=== PATIENT | female | born 1930 | race Caucasian/White ===

== ENCOUNTER 2018-03-02 11:29 | Inpatient (IN) ==
[2018-03-02] MEDS ORDERED: 0.9 % SODIUM CHLORIDE 1,000 ML IV ONE ×2 (11:47→13:20)
--- NOTE | 2018-03-02 12:39 | Emergency Department Note ---
GI Bleed HPI - General Chief complaint: Rectal Bleed Stated complaint: darks stools, dark vomit Time Seen by Provider: 03/02/18 12:33 Source: patient, family Mode of arrival: wheelchair Limitations: no limitations - History of Present Illness HPI Narrative: Patient stating she has had black stools for the past 3 days had one episode of hematemesis yesterday and she is on Plavix for CVA in the past also takes a full dose aspirin. She denies any abdominal pain she is having some slight nausea she states she has been feeling lightheaded but it has been present for the last 3 months she has had a colonoscopy but is been greater than 10 years Temperature 97.0 pulse is 78 respirations are 20 blood pressure 119/71 pulse ox is 95% the Accu-Chek is 175 - Related Data Home Medications Medication Instructions Recorded Confirmed [facility] Contour Test 10/30/14 02/18/18 acetaminophen 325 mg tablet See Dose Instructions PO .COMPLEX 10/30/14 02/18/18 PRN tab aspirin 325 mg tablet 325 mg PO QDAY tab 10/30/14 02/18/18 calcium carbonate 500 mg (1,250 1 tab PO .QOD tab 10/30/14 02/18/18 mg)-vitamin D3 400 unit tablet multivitamin capsule 1 tab-cap PO QDAY cap 10/30/14 02/18/18 stool softener PO 10/30/14 02/18/18 Previous Rx's Medication Instructions Recorded tramadol 37.5 mg-acetaminophen 325 1 tab PO TID PRN #30 tab 01/09/16 mg tablet cholecalciferol (vitamin D3) 1,000 1,000 unit PO QDAY #1 cap 01/15/16 unit capsule amlodipine 10 mg tablet 10 mg PO BID #180 tab 02/17/17 lisinopril 20 mg tablet 20 mg PO BID #180 tab 09/17/17 glipizide ER 5 mg tablet, extended 5 mg PO .COMPLEX #180 tab 11/03/17 release 24 hr ropinirole 1 mg tablet 1 mg PO QHS #225 tab 11/03/17 furosemide 20 mg tablet 20 mg PO QDAY #30 tab 12/09/17 atenolol 50 mg tablet 50 mg PO QDAY 90 Days #90 tab 12/24/17 clopidogrel 75 mg tablet 75 mg PO QDAY 90 Days #90 tab 12/24/17 cyclobenzaprine 5 mg tablet 5 mg PO TID PRN #90 tab 12/24/17 simvastatin 40 mg tablet 20 mg PO QDAY #45 tab 12/24/17 triamterene 37.5 1 cap PO QDAY #90 cap 02/26/18 mg-hydrochlorothiazide 25 mg capsule blood sugar diagnostic strips See Dose Instructions .ROUTE 03/01/18 .MEDSUPPLY #100 each Allergies Allergy/AdvReac Type Severity Reaction Status Date / Time acetaminophen AdvReac Vomiting Verified 03/02/18 11:32 [From Darvocet-N 100] metformin AdvReac Diarrhea Verified 03/02/18 11:32 NSAIDS (Non-Steroidal AdvReac Unknown Verified 03/02/18 11:32 Anti-Inflamma propoxyphene AdvReac Vomiting Verified 03/02/18 11:32 [From Darvocet-N 100] codeine sulfate AdvReac Unknown Uncoded 02/18/18 13:05 Review of Systems All systems ED: reviewed and negative except as stated. Gastrointestinal: Reports: nausea, vomiting, melena, hematemesis Genitourinary: Denies: dysuria, urgency, frequency Past Medical History - Past Medical History Medical history: Reports: cancer (Skin - nonmelanoma.), CVA, DM (Type II, on oral medication), hyperlipidemia, hypertension, other ("Heart flutter". Restless leg syndrome.). Denies: myocardial infarction, thyroid disease Psychiatric history: Reports: anxiety, depression Surgical history ED: Reports: cholecystectomy, hip replacement, knee replacement (Bilateral), orthopedic, other (Left foot.), CLARK/BSO, other (Breast biopsy. Surgical removal of a nail that she swallowed.) - Social History smoking status: Never smoker Alcohol use: Reports: Rarely (Small sips of wine.) Physical Exam Limitations: no limitations General appearance: alert Head: atraumatic, normocephalic Eye: Present: normal appearance ENT: normal exam Neck: Present: normal inspection, full ROM Chest: Present: normal inspection, symmetric chest wall rise. Absent: tenderness Respiratory: Present: normal lung sounds bilaterally. Absent: respiratory distress, rales/crackles, wheezes Cardiovascular: Present: regular rate, normal rhythm. Absent: bradycardia, tachycardia Abdominal: Present: soft, normal bowel sounds. Absent: distention, tenderness, guarding, rebound, rigidity Rectal: Present: normal inspection, normal rectal tone, heme (+) stool Extremities: Present: normal inspection, full ROM Back: Present: normal inspection, full ROM Neurological: Present: alert, oriented X3, CN II-XII intact Psychiatric: Present: normal affect, normal mood Course Vital Signs Temperature 97.0 F 03/02/18 11:30 Pulse Rate 78 03/02/18 11:30 Respiratory Rate 20 03/02/18 11:30 Blood Pressure 119/71 03/02/18 11:30 Pulse Oximetry (%) 95 03/02/18 11:30 Temperature 97.0 F 03/02/18 11:30 Pulse Rate 58 L 03/02/18 14:01 Respiratory Rate 21 03/02/18 14:01 Blood Pressure 105/43 03/02/18 14:01 Pulse Oximetry (%) 96 03/02/18 14:01 GI Bleed - [facility] Narrative Medical decision making narrative: WBC is 8200 hemoglobin 10.2 hematocrit 30.3 PT is 13.7 INR 1.0 BUN is 52 the creatinine 1.5 sodium is 132 potassium 3.6 patient has an upper GI bleed Dr. Logan contacted patient to be admitted to [facility] - Lab Data Result diagrams: 03/02/18 12:10 03/02/18 12:09 Lab Results 03/02/18 03/02/18 03/02/18 Range/Units 11:45 12:09 12:10 WBC 8.2 (4.5-11.0) K/mcL RBC 3.19 L (4.00-5.20) M/mcL Hgb 10.2 L (12.0-15.0) g/dL Hct 30.3 L (36.0-48.0) % POC Hct 30.0 L (36.0-48.0) % MCV 95.2 (80.0-100.0) fL MCH 31.9 (26.0-34.0) pg MCHC 33.5 (31.0-36.0) g/dL RDW 14.1 (11.5-14.5) % Plt Count 244 (140-440) K/mcL MPV 8.6 (7.4-10.4) fL Gran % 61.5 (38.0-78.0) % Lymph % (Auto) 26.8 (15.5-49.0) % [place] % (Auto) 9.7 (1.0-12.0) % Eos % (Auto) 1.7 (0.0-7.0) % Baso % (Auto) 0.3 (0.0-2.0) % Gran # 5.0 (1.8-8.0) K/mcL Lymph # (Auto) 2.2 (1.5-4.8) K/mcL [place] # (Auto) 0.8 (0.1-0.9) K/mcL Eos # (Auto) 0.1 (0.0-0.7) K/mcL Baso # (Auto) 0 (0.0-0.3) K/mcL PT 13.7 (11.9-14.5) sec INR 1.0 (0.9-1.1) POC Sodium 133 (133-145) mmol/L Sodium 132 L (133-145) mmol/L POC Potassium 3.6 (3.3-5.1) mmol/L Potassium 3.8 (3.3-5.1) mmol/L POC Chloride 97 (96-108) mmol/L Chloride 95 L (96-108) mmol/L Carbon Dioxide 22 (22-30) mmol/L POC Total CO2 23 (22-30) mmol/L Anion Gap 15.0 (8-16) POC BUN 52 H (8-23) mg/dl BUN 55 H (8-23) mg/dl Creatinine 1.5 H (0.6-1.1) mg/dl POC Creatinine 1.4 H (0.6-1.1) mg/dl GFR Calculation 31 Glucose 185 H (70-105) mg/dL POC Glucose 181 H (70-105) mg/dL Calcium 10.0 (8.6-10.4) mg/dl POC WB Ioniz Calcium 1.24 (1.16-1.32) mmol/L Total Bilirubin 0.3 (0.0-1.0) mg/dL AST 15 (0-37) U/l ALT 11 (0-40) U/l Alkaline Phosphatase 52 (39-117) U/L Total Protein 7.0 (5.9-8.4) gm/dL Albumin 4.0 (3.2-5.2) gm/dL Globulin 3.0 (2.2-3.7) gm/dL Albumin/Globulin Ratio 1.3 (1.0-2.3) Disposition Pt seen by IMMUNOPATHOLOGIST/PA only: No Clinical Impression: GI bleed Disposition: Xfer As Inpt ([facility]) Condition: Fair Referrals: Luci Cardona DO [Primary Care Provider] -
[2018-03-02 12:42] LABS: Basophils # (Auto) 0 K/mcL (0.0-0.3); Basophils % (Auto) 0.3 % (0.0-2.0); Eosinophils # (Auto) 0.1 K/mcL (0.0-0.7); Eosinophils % (Auto) 1.7 % (0.0-7.0); Granulocytes % (Auto) 61.5 % (38.0-78.0); Lymphocytes # (Auto) 2.2 K/mcL (1.5-4.8); Lymphocytes % (Auto) 26.8 % (15.5-49.0); Mean Cell Volume 95.2 fL (80.0-100.0); Mean Corpuscular HGB Conc 33.5 g/dL (31.0-36.0); Mean Corpuscular Hemoglobin 31.9 pg (26.0-34.0); Monocytes # (Auto) 0.8 K/mcL (0.1-0.9); Monocytes % (Auto) 9.7 % (1.0-12.0); Platelet Count 244 K/mcL (140-440); RBC 3.19 M/mcL (4.00-5.20); Red Cell Distribution Width 14.1 % (11.5-14.5)
[2018-03-02] MEDS ORDERED: PANTOPRAZOLE 40 MG VIAL IV ONE (12:46)
[2018-03-02 13:05] LABS: ALT/SGPT 11 U/l (0-40); Albumin/Globulin Ratio 1.3 (1.0-2.3); Alkaline Phosphatase 52 U/L (39-117); Blood Urea Nitrogen 55 mg/dl (8-23)
[2018-03-02] MEDS ORDERED: 0.9 % SODIUM CHLORIDE 1,000 ML IV SCH (15:00)
[2018-03-02 15:17] LABS: Appearance,Urine CLEAR; Bacteria,Urine MOD /hpf (0); Bilirubin,Urine NEG (NEG); Color,Urine STRAW; Glucose,Urine (UA) NEGATIVE (NEG); Leukocyte Esterase,Urine 250 /uL (NEG); Mucus,Urine FEW /hpf (0); Protein,Urine NEG (NEG); Specific Gravity,Urine 1.009 (1.000-1.035); Urine Blood NEG mg/dL (<0.03); Urine RBC 0 /hpf (0-1); Urine Squamous Epithelial Cell 1 /hpf (0-4); Urine WBC 23 /hpf (0-4); Urobilinogen,Urine NEG (NEG)
[2018-03-02] MEDS ORDERED: ACETAMINOPHEN 1,000 MG/100 ML BOTTLE IV PRN (17:35)
[2018-03-02] MEDS ORDERED: ONDANSETRON 4 MG/2 ML VIAL IV PRN (17:35)
[2018-03-02] MEDS: 0.9 % SODIUM CHLORIDE 1,000 ML IV SCH ×3 (17:48→22:52)
--- NOTE | 2018-03-02 18:26 | General Surg History&Physical ---
History of Present Illness Patient information: Note initiated : 03/02/18 at 6:26 pm Service Date, if different from initiated Date: [] Patient: Genevieve Christiansen a 87 y/o F admitted on 03/02/18 for Dark Stools, Dark Vomit. Chief Complaint: [] HPI: Ms. Christiansen is a 87 year old F admitted for evaluation of POSSIBLE UPPER gi BLEED. Patient has been having emesis after eating for at least 3 weeks. 2 days ago she had emesis of congenital brown liquid 2. She has been having black stools since Thursday. She denies indigestion or abdominal pain and she denies nausea. She did have some reflux type symptoms over a year ago and had upper endoscopy which showed a distal esophageal ring which was dilated. She has not had colonoscopy since 2002 but her last study was normal.her last hemoglobin was 13.4 but is now 10.2 Review of Systems - Constitutional fatigue, weakness - EENT Eyes: bilateral: blurred vision, decreased vision Nose, mouth and throat: abnormal hearing, dizziness, vertigo - Cardiovascular irregular heart rhythm, orthopnea, palpatations, syncope - Respiratory no cough, no dyspnea on exertion, no wheezing - Gastrointestinal bloating, dyspepsia, hematemesis, melena - Musculoskeletal abnormal gait, arthralgias, stiffness - Integumentary no non-healing lesions, no pruritus, no rash - Neurological abnormal gait, dizziness, headache(s), restless legs, syncope, weakness - Hematologic/Lymphatic no easy bleeding, no easy bruising, no lymphadenopathy - Allergic/Immunologic no tongue swelling, no throat swelling, no uticaria, no wheezing, no lip swelling Past History Past medical history: Atrial fibrillation History of CVA 1999 and 2014 Peripheral neuropathy Hypertension Diabetes mellitus type 2 Degenerative arthritis Orthostatic syncope Past surgical history: Bilateral total knee arthroplasty Total abdominal hysterectomy Cholecystectomy Left total hip arthroplasty Past family history: Negative Past social history: Denies tobacco use Denies alcohol use Denies drug use Medications and Allergies Home Medications Medication Instructions Recorded Confirmed Type acetaminophen 325 mg tablet See Dose Instructions PO .COMPLEX 10/30/14 03/02/18 History PRN tab aspirin 325 mg tablet 325 mg PO QDAY tab 10/30/14 03/02/18 History lisinopril 20 mg tablet 20 mg PO BID #180 tab 09/17/17 03/02/18 Rx furosemide 20 mg tablet 20 mg PO QDAY #30 tab 12/09/17 03/02/18 Rx atenolol 50 mg tablet 50 mg PO QDAY 90 Days #90 tab 12/24/17 03/02/18 Rx clopidogrel 75 mg tablet 75 mg PO QDAY 90 Days #90 tab 12/24/17 03/02/18 Rx simvastatin 40 mg tablet 20 mg PO QDAY #45 tab 12/24/17 03/02/18 Rx triamterene 37.5 1 cap PO QDAY #90 cap 02/26/18 03/02/18 Rx mg-hydrochlorothiazide 25 mg capsule Cyclobenzaprine HCl 5 mg PO BID 03/02/18 03/02/18 History Vit A,C & E/Lutein/Minerals 1 tab PO DAILY 03/02/18 03/02/18 History [Ocuvite] amLODIPine BESYLATE [Amlodipine 5 mg PO BID 03/02/18 03/02/18 History Besylate] cholecalciferol (vitamin D3) 1,000 2,000 unit PO QDAY 03/02/18 03/02/18 History unit capsule glipiZIDE [Glucotrol Xl] 5 mg PO BID 03/02/18 03/02/18 History rOPINIRole HCL [Requip] 1 mg PO BID 03/02/18 03/02/18 History traMADol HCL/ACETAMINOPHEN 1 tab PO TIDP PRN 03/02/18 03/02/18 History [Ultracet] Allergies Allergy/AdvReac Type Severity Reaction Status Date / Time acetaminophen AdvReac Vomiting Verified 03/02/18 11:32 [From Darvocet-N 100] metformin AdvReac Diarrhea Verified 03/02/18 11:32 NSAIDS (Non-Steroidal AdvReac Unknown Verified 03/02/18 11:32 Anti-Inflamma propoxyphene AdvReac Vomiting Verified 03/02/18 11:32 [From Darvocet-N 100] codeine sulfate AdvReac Unknown Uncoded 02/18/18 13:05 Exam Temp Pulse Resp BP Pulse Ox 97.3 F 57 L 16 126/65 96 03/02/18 16:47 03/02/18 16:47 03/02/18 16:47 03/02/18 16:47 03/02/18 16:47 - General physical appearance well developed, well nourished, no distress, other (overweight) - Eyes PERRL, normal ocular movement. negative: icteric - ENT normal pinna, normal nares, normal mucosa, no congestion, decreased hearing - Head Head exam IM: Present: atraumatic, normocephalic - Neck no masses, no bruits, trachea midline, no lymphadectomy, no venous distension - Cardiovascular Cardiovascular exam IM: Present: irregular rhythm, +S1, +S2. Absent: JVD, tachycardia - Respiratory normal expansion, normal respiratory effort, clear to auscultation - Abdomen Abdomen: Present: soft, non tender, bowel sounds Hernia: Present: none - Genitourinary Present: normal external genitalia - Integumentary Present: no rash, no growths, no abnormal pigmentation - Neurologic Present: normal coordination, normal sensation - Musculoskeletal Present: normal posture, other ( gait not tested) - Psychiatric Present: oriented to time, oriented to person, oriented to place, speech is normal, memory intact Assessment and Plan (1) Upper gastrointestinal bleeding Pantoprazole 40 mg IV every 12 hours Type and cross for 2 units packed red cells Serial hemoglobin and hematocrit Schedule for upper endoscopy Status: Acute (2) Blood loss anemia Transfuse if hemoglobin drops below 9 Status: Acute (3) Atrial fibrillation Status: Chronic Qualifiers: Atrial fibrillation type: chronic Qualified Code(s): I48.2 - Chronic atrial fibrillation (4) Diabetes mellitus, type II Accu-Cheks every 6 hours Sliding-scale insulin coverage with medium scale Status: Chronic Comment: Adult onset, non-insulin dependent Qualifiers: Diabetes mellitus complication status: without complication Qualified Code( s): E11.9 - Type 2 diabetes mellitus without complications (5) Hypertension Hold antihypertensive medications since they are probably contributing to her syncopal episodes Monitor blood pressure closely Hold diuretics until creatinine is corrected Status: Chronic Comment: Long-standing hx; CT angio to rule out renal artery stenosis. On multi-drug regimen and pressures generally stable. Qualifiers: Hypertension type: essential hypertension Qualified Code(s): I10 - Essential (primary) hypertension
[2018-03-02] MEDS: rOPINIRole 0.25 MG TABLET PO SCH (18:48)
[2018-03-02] MEDS ORDERED: INSULIN LISPRO 1 UNIT/0.01 ML UNIT SQ ONE (18:52)
[2018-03-02] MEDS ORDERED: CYCLOBENZAPRINE 10 MG TABLET PO SCH (21:00)
[2018-03-02] MEDS: INSULIN LISPRO 1 UNIT/0.01 ML UNIT SQ SCH (22:47)
[2018-03-02] MEDS: amLODIPine 10 MG TABLET PO SCH (22:48)
[2018-03-03] MEDS: rOPINIRole 0.25 MG TABLET PO SCH ×2 (00:21→21:03)
[2018-03-03] MEDS: INSULIN LISPRO 1 UNIT/0.01 ML UNIT SQ SCH ×5 (01:23→23:50)
[2018-03-03 05:14] LABS: Basophils # (Auto) 0 K/mcL (0.0-0.3); Basophils % (Auto) 0.4 % (0.0-2.0); Eosinophils # (Auto) 0.1 K/mcL (0.0-0.7); Eosinophils % (Auto) 1.7 % (0.0-7.0); Granulocytes % (Auto) 61.5 % (38.0-78.0); Lymphocytes # (Auto) 1.5 K/mcL (1.5-4.8); Lymphocytes % (Auto) 23.3 % (15.5-49.0); Mean Cell Volume 94.2 fL (80.0-100.0); Mean Corpuscular HGB Conc 34.3 g/dL (31.0-36.0); Mean Corpuscular Hemoglobin 32.3 pg (26.0-34.0); Monocytes # (Auto) 0.8 K/mcL (0.1-0.9); Monocytes % (Auto) 13.1 % (1.0-12.0); Platelet Count 192 K/mcL (140-440); RBC 2.61 M/mcL (4.00-5.20); Red Cell Distribution Width 14.1 % (11.5-14.5)
[2018-03-03 05:51] LABS: ALT/SGPT 8 U/l (0-40); Albumin 3.3 gm/dL (3.2-5.2); Albumin/Globulin Ratio 1.4 (1.0-2.3); Alkaline Phosphatase 43 U/L (39-117); Bilirubin,Direct < 0.2 mg/dL (0.0-0.3); Blood Urea Nitrogen 34 mg/dl (8-23); Gamma Glutamyl Transpeptidase 13 U/L (5-36)
[2018-03-03] MEDS: PANTOPRAZOLE 40 MG VIAL IV SCH ×2 (06:51→17:21)
[2018-03-03] MEDS: 0.9 % SODIUM CHLORIDE 1,000 ML IV SCH ×2 (07:02→11:05)
[2018-03-03] MEDS ORDERED: 0.9 % SODIUM CHLORIDE 250 ML IV SCH (07:45)
[2018-03-03] MEDS: amLODIPine 10 MG TABLET PO SCH ×2 (08:26→21:04)
[2018-03-03] MEDS: ATENOLOL 50 MG TABLET PO SCH (08:27)
--- NOTE | 2018-03-03 12:05 | General Surgery Progress Note ---
Subjective Patient reports: feels better, tolerating liquids well, flatus, no bowel movement, afebrile Narrative: Note initiated : 03/03/18 at 12:04 pm Service Date, if different from initiated Date: [] Patient: Genevieve Christiansen 87 y/o F admitted on 03/02/18 for Dark Stools, Dark Vomit /Upper GI Bleed. Chief Complaint: [Patient is stable. She has not had emesis or bowel movement overnight. Her hemoglobin has drifted down to 8.4 after hydration. There is no evidence of active bleeding. She denies having abdominal discomfort. It is noted that her base pulse rate is 50-60 off of her beta blockers. Her blood pressure is 120 to 130 systolic off of antihypertensives. Patient will be transfused 2 units of packed red cells in her IV fluids will be withheld. She is scheduled for endoscopy in the morning.] Objective Temp Pulse Resp BP Pulse Ox 96.4 F L 60 16 121/54 98 03/03/18 11:34 03/03/18 11:34 03/03/18 11:34 03/03/18 11:34 03/03/18 11:34 - Additional Data Intake & Output - Last 24 hours: Intake & Output 03/01/18 03/02/18 03/03/18 03/04/18 05:59 05:59 05:59 05:59 Intake Total 1625 / 1625 460 / 460 Output Total 1000 / 1000 700 / 700 Balance 625 / 625 -240 / -240 Weight 200 lb - General physical appearance well developed, well nourished, no distress - Eyes PERRL, normal ocular movement - ENT normal pinna, normal nares, normal mucosa, no hearing loss, no congestion - Neck no masses, no bruits, trachea midline, no venous distension - Respiratory normal expansion, normal respiratory effort, clear to auscultation - Cardiovascular Cardiovascular exam: Present: bradycardia, irregular rhythm, +S1, +S2. Absent: JVD - Abdomen non tender, bowel sounds (present), surgical scars (none), masses (none) - Integumentary no rash, no growths, no abnormal pigmentation - Neurologic normal coordination, normal sensation - Musculoskeletal normal posture - Psychiatric oriented to time, oriented to person, oriented to place, speech is normal, memory intact - Labs 03/03/18 04:11 03/03/18 04:11 Diabetes panel 03/02/18 03/03/18 Range/Units 12:09 04:11 Sodium 132 L 139 (133-145) mmol/L Potassium 3.8 3.3 (3.3-5.1) mmol/L Chloride 95 L 105 (96-108) mmol/L Carbon Dioxide 22 24 (22-30) mmol/L BUN 55 H 34 H (8-23) mg/dl Creatinine 1.5 H 1.1 (0.6-1.1) mg/dl Glucose 185 H 105 (70-105) mg/dL Calcium 10.0 9.2 (8.6-10.4) mg/dl AST 15 13 (0-37) U/l ALT 11 8 (0-40) U/l Alkaline Phosphatase 52 43 (39-117) U/L Total Protein 7.0 5.6 L (5.9-8.4) gm/dL Albumin 4.0 3.3 (3.2-5.2) gm/dL Triglycerides 81 (<150) mg/dl Calcium panel 03/02/18 03/03/18 Range/Units 12:09 04:11 Calcium 10.0 9.2 (8.6-10.4) mg/dl Phosphorus 2.5 L (2.7-4.5) mg/dL Albumin 4.0 3.3 (3.2-5.2) gm/dL Pituitary panel 03/02/18 03/03/18 Range/Units 12:09 04:11 Sodium 132 L 139 (133-145) mmol/L Potassium 3.8 3.3 (3.3-5.1) mmol/L Chloride 95 L 105 (96-108) mmol/L Carbon Dioxide 22 24 (22-30) mmol/L BUN 55 H 34 H (8-23) mg/dl Creatinine 1.5 H 1.1 (0.6-1.1) mg/dl Glucose 185 H 105 (70-105) mg/dL Calcium 10.0 9.2 (8.6-10.4) mg/dl Adrenal panel 03/02/18 03/03/18 Range/Units 12:09 04:11 Sodium 132 L 139 (133-145) mmol/L Potassium 3.8 3.3 (3.3-5.1) mmol/L Chloride 95 L 105 (96-108) mmol/L Carbon Dioxide 22 24 (22-30) mmol/L BUN 55 H 34 H (8-23) mg/dl Creatinine 1.5 H 1.1 (0.6-1.1) mg/dl Glucose 185 H 105 (70-105) mg/dL Calcium 10.0 9.2 (8.6-10.4) mg/dl Total Bilirubin 0.3 0.3 (0.0-1.0) mg/dL AST 15 13 (0-37) U/l ALT 11 8 (0-40) U/l Alkaline Phosphatase 52 43 (39-117) U/L Total Protein 7.0 5.6 L (5.9-8.4) gm/dL Albumin 4.0 3.3 (3.2-5.2) gm/dL Assessment and Plan (1) Upper gastrointestinal bleeding Status: Acute Assessment and plan: Hemoglobin has drifted down but there is no evidence of ongoing bleeding. Family members and patient counseled for upper endoscopy in the morning Current Visit: Yes (2) Blood loss anemia Status: Acute Assessment and plan: Patient will be transfused 2 units of packed red cells Current Visit: Yes (3) Atrial fibrillation Status: Chronic Current Visit: No (4) Diabetes mellitus, type II Problem details: Adult onset, non-insulin dependent Status: Chronic Current Visit: No (5) Hypertension Problem details: Long-standing hx; CT angio to rule out renal artery stenosis. On multi-drug regimen and pressures generally stable. Status: Chronic Assessment and plan: Blood pressure is stable off of antihypertensives for the past 24 hours Current Visit: No - Time Spent With Patient Total time spent is greater than 50% in coordination of care (as documented) at patient's floor/unit and/or counseling patient:
[2018-03-03] MEDS ORDERED: rOPINIRole 1 MG TABLET PO SCH (17:00)
[2018-03-03] MEDS ORDERED: SIMVASTATIN 20 MG TABLET PO SCH (21:00)
[2018-03-04] MEDS: INSULIN LISPRO 1 UNIT/0.01 ML UNIT SQ SCH ×3 (05:10→20:43)
[2018-03-04 05:41] LABS: Basophils # (Auto) 0 K/mcL (0.0-0.3); Basophils % (Auto) 0.5 % (0.0-2.0); Eosinophils # (Auto) 0.2 K/mcL (0.0-0.7); Eosinophils % (Auto) 3.6 % (0.0-7.0); Granulocytes % (Auto) 60.3 % (38.0-78.0); Lymphocytes # (Auto) 1.4 K/mcL (1.5-4.8); Lymphocytes % (Auto) 24.3 % (15.5-49.0); Mean Cell Volume 93.6 fL (80.0-100.0); Mean Corpuscular HGB Conc 34.1 g/dL (31.0-36.0); Mean Corpuscular Hemoglobin 31.9 pg (26.0-34.0); Monocytes # (Auto) 0.7 K/mcL (0.1-0.9); Monocytes % (Auto) 11.3 % (1.0-12.0); Platelet Count 206 K/mcL (140-440); RBC 3.44 M/mcL (4.00-5.20); Red Cell Distribution Width 14.6 % (11.5-14.5)
[2018-03-04 06:18] LABS: ALT/SGPT 10 U/l (0-40); Albumin 3.5 gm/dL (3.2-5.2); Albumin/Globulin Ratio 1.5 (1.0-2.3); Alkaline Phosphatase 47 U/L (39-117); Bilirubin,Direct < 0.2 mg/dL (0.0-0.3); Blood Urea Nitrogen 17 mg/dl (8-23); Gamma Glutamyl Transpeptidase 15 U/L (5-36)
[2018-03-04] MEDS: PANTOPRAZOLE 40 MG VIAL IV SCH ×2 (07:35→17:08)
[2018-03-04] MEDS: amLODIPine 10 MG TABLET PO SCH ×2 (09:26→20:28)
[2018-03-04] MEDS: ATENOLOL 50 MG TABLET PO SCH (09:26)
[2018-03-04] MEDS ORDERED: MIDAZOLAM 2 MG/2 ML VIAL IV ONE (11:45)
[2018-03-04] MEDS ORDERED: PROPOFOL 200 MG/20 ML VIAL IV ONE (11:45)
[2018-03-04] MEDS ORDERED: fentaNYL 100 MCG/2 ML VIAL IV ONE (11:45)
--- NOTE | 2018-03-04 12:00 | Brief Operative Note ---
Date of procedure: 03/04/18 Pre-op diagnosis: UPPER G.I. BLEEDING Post-op diagnosis: other (MULTIPLE ESOPHAGEAL VARICES;DIFFUSE GASTRITIS; PREPYLORIC GASTIC ULCER ;LARGE DUODENAL ULCER CRATER WITH FIBRINOUS BASE; NO ACTIVE BLEDING) Procedure: EGD WITH BIOPSIES Grafts/Implants: No Anesthesia: MAC Findings: LARGE BULBOUS VARICES WITHOUT BLEEDING ; DIFFUSE INFLAMMATION OF STOMACH WITH EROSIONS;MODERATE SIZED PREPYLORIC ULCER AND LARGE ULCER CRATER OF DUODENAL BULB WITHOUT BLEEDING; ACUTE DUODENITIS Complications: none Surgeon: Gregoria Logan Specimens Removed/Pathology: other (ANTRAL BIOPSIES WITH ERICA TEST) Condition: stable Disposition: same day
[2018-03-04] MEDS ORDERED: ACETAMINOPHEN 1,000 MG/100 ML BOTTLE IV PRN (12:40)
[2018-03-04] MEDS ORDERED: ONDANSETRON 4 MG/2 ML VIAL IV PRN (12:40)
[2018-03-04] MEDS ORDERED: rOPINIRole 1 MG TABLET PO SCH (17:00)
[2018-03-04] MEDS: SUCRALFATE 1 GM/10 ML ORAL.SUSP PO SCH ×2 (17:46→23:51)
[2018-03-04] MEDS ORDERED: INSULIN LISPRO 1 UNIT/0.01 ML UNIT SQ SCH (18:00)
[2018-03-04] MEDS ORDERED: DEXTROSE 50% 50 ML VIAL IV PRN (20:36)
[2018-03-04] MEDS ORDERED: DEXTROSE 31 GM ORAL.SUSP PO PRN (20:36)
[2018-03-04] MEDS: glipiZIDE 5 MG TAB.XL.24H PO SCH (20:43)
[2018-03-04] MEDS: SULFAMETHOXAZOLE/TRIMETHOPRIM 1 TABLET PO SCH (20:43)
[2018-03-04] MEDS ORDERED: SIMVASTATIN 20 MG TABLET PO SCH (21:00)
[2018-03-04] MEDS ORDERED: rOPINIRole 0.25 MG TABLET PO SCH (21:00)
[2018-03-05] MEDS: SUCRALFATE 1 GM/10 ML ORAL.SUSP PO SCH ×2 (05:34→11:56)
[2018-03-05] MEDS: INSULIN LISPRO 1 UNIT/0.01 ML UNIT SQ SCH ×2 (07:00→11:56)
[2018-03-05] MEDS: PANTOPRAZOLE 40 MG VIAL IV SCH (07:47)
[2018-03-05] MEDS: SULFAMETHOXAZOLE/TRIMETHOPRIM 1 TABLET PO SCH (07:48)
[2018-03-05] MEDS: glipiZIDE 5 MG TAB.XL.24H PO SCH (07:48)
[2018-03-05] MEDS ORDERED: POTASSIUM CHLORIDE 20 MEQ TABLET PO SCH (08:00)
[2018-03-05] MEDS ORDERED: ATENOLOL 50 MG TABLET PO SCH (09:00)
[2018-03-05] MEDS: amLODIPine 10 MG TABLET PO SCH (11:01)
--- NOTE | 2018-03-05 14:10 | Discharge Summary ---
Providers - Providers Patient information: Note initiated : 03/05/18 at 1:58 pm Service Date, if different from initiated Date: [] Patient: Genevieve Christiansen 87 y/o F admitted on 03/02/18 for Dark Stools, Dark Vomit /Upper GI Bleed. Chief Complaint: [] Date of admission: 03/02/18 Discharge date: 03/05/18 Attending physician: Gregoria Logan Primary care physician: Luci Cardona Hospitalization Hospital course: 87-year-old female admitted with history of emesis of dark brown liquid and melena for 2 days. She had a history of progressive weakness and lethargy. She was seen in the emergency room where she had guaiac stools. Her hemoglobin was 10.2 with her previous recorded hemoglobin of 13.4. She had no significant abdominal pain and denied nausea. She states that she was not taken nonsteroidal anti-inflammatory drugs. She was admitted with suspected upper GI bleed. It was noted that she was mildly hypotensive with blood pressure in the 100 systolic range and she was bradycardic with heart rate of 50-60. She had an irregular rhythm. Her hemoglobin drifted down to 8.4 and she was transfused 2 units of packed red cells. She underwent EGD on 04 March which showed multiple esophageal varices without bleeding; diffuse gastritis; prepyloric gastric ulcer; large duodenal ulcer crater with a fibularbut without active bleeding. Biopsies were taken. The patient has remained stable and has not had any melena since discharge. Clinical history suggests that she has had multiple episodes of syncope. These episodes were almost always associated with ambulation shortly after standing. Her antihypertensives and diuretics were withheld for the 4 days that she was hospitalized and her peak heart rate was 85. With an average heart rate of 62. Her average pulse rate increased from 50-64 off atenolol. Her low blood pressure increased from 110 to 1:15 systolic to an average of about 135 systolic off of the lisinopril amlodipine, atenolol and the 2 diuretics. She is clinically stable now and will be discharged home. I have discussed the discontinuation of her diuretics and antihypertensives with Dr. CARDONA and she will make arrangements to see her next week to check pulse and possibly to place even a Holter or loop monitor while she is more active at home. Discharge diagnosis: upper GI bleeding Secondary discharge diagnosis: Large duodenal and gastric ulcer Severe gastroduodenitis Esophageal varices Orthostatic hypotension with syncope History of hypertension Reason for admission: upper GI bleeding with melena Procedures: Esophagogastroduodenoscopy with biopsies Pertinent studies/significant findings: None Complications: None Exam Temp Pulse Resp BP Pulse Ox 96.7 F L 64 18 132/72 96 03/05/18 11:51 03/05/18 04:00 03/05/18 11:51 03/05/18 11:51 03/05/18 11:51 - General physical appearance well developed, well nourished, no distress - Eyes PERRL, normal ocular movement - ENT normal pinna, normal nares, normal mucosa, no congestion, decreased hearing - Head Head exam IM: Present: atraumatic, normal inspection, normocephalic - Neck no masses, no bruits, trachea midline, no lymphadectomy, no venous distension - Cardiovascular Cardiovascular exam IM: Present: bradycardia, irregular rhythm, +S1, +S2, systolic murmur. Absent: JVD, tachycardia Intensity IM: 06/23 - Respiratory normal expansion, normal respiratory effort, clear to auscultation - Abdomen Abdomen: Present: soft, non tender, bowel sounds Hernia: Present: none - Genitourinary Present: normal external genitalia - Integumentary Present: no rash, no growths, no abnormal pigmentation - Neurologic Present: normal coordination, normal sensation - Musculoskeletal Present: normal gait, normal posture - Psychiatric Present: oriented to time, oriented to person, oriented to place, speech is normal, memory intact Discharge Plan - Patient/Caregiver Discharge Instructions Activity: increase activity as tolerated Diet: Regular Diet Additional Instructions: Discharge Instructions: You will be receiving a phone call from [facility] within 48 hours of discharge home. Do not take furosemide, lisinopril, Dyazide, amlodipine, atenolol until you are seen by next week Hold Plavix until 11 March and then resume at previous dose Baby aspirin 81 mg daily until 11 March then resume at 325 mg daily Follow-up with me in 2 weeks Prescriptions: Ranitidine HCl [Zantac] 300 mg PO QHS #30 tab Other Amb Orders: Complete Blood Count Location: None Selected - Follow up Plan Follow up with: Luci Cardona DO [Primary Care Provider] - Disposition: Home Health Service Prognosis: Good Rehab Potential: Good I certify that the patient requires SNF services.: No Overall status at discharge: patient is progressing back to baseline Pending Studies Resuscitation Status Do Not Resuscitate Diet Consistent Carbohydrate Diet Start Marcie Oct 18 1241 Amlodipine Besylate (Norvasc) 5 mg PO BID [facility] Last Admin: 03/05/18 11:01 Dose: Not Given Admin: 03/04/18 20:28 Dose: Not Given Atenolol (Tenormin) 50 mg PO QDAY [facility] Last Admin: 03/05/18 11:01 Dose: Not Given Diagnostic Test (Pha) (Accu-Chek) 1 each FS [facility] Last Admin: 03/05/18 11:57 Dose: 1 each Admin: 03/05/18 06:59 Dose: 1 each Admin: 03/04/18 20:42 Dose: 1 each Glipizide (Glucotrol Xl) 5 mg PO BID [facility] Last Admin: 03/05/18 07:48 Dose: 5 mg Admin: 03/04/18 20:43 Dose: 5 mg Insulin Human Lispro (Humalog) 0 unit SQ [facility]; Protocol Last Admin: 03/05/18 11:56 Dose: 6 unit Admin: 03/05/18 07:00 Dose: Not Given Admin: 03/04/18 20:43 Dose: Not Given Pantoprazole Sodium (Protonix) 40 mg IV BIDAC [facility] Last Admin: 03/05/18 07:47 Dose: 40 mg Admin: 03/04/18 17:08 Dose: 40 mg Potassium Chloride (Kdur) 20 meq PO BIDCC [facility] Last Admin: 03/05/18 07:48 Dose: 20 meq Ropinirole HCl (Requip) 1 mg PO DAILY@1700 [facility] Last Admin: 03/04/18 17:04 Dose: 1 mg Ropinirole HCl (Requip) 0.5 mg PO [facility] Last Admin: 03/04/18 20:43 Dose: 0.5 mg Simvastatin (Zocor) 20 mg PO [facility] Last Admin: 03/04/18 20:43 Dose: 20 mg Sucralfate (Carafate) 1 gm PO Q6 [facility] Last Admin: 03/05/18 11:56 Dose: 1 gm Admin: 03/05/18 05:34 Dose: 1 gm Admin: 03/04/18 23:51 Dose: 1 gm Admin: 03/04/18 17:46 Dose: 1 gm Trimethoprim/Sulfamethoxazole (Bactrim Ds) 1 tab PO BID [facility] Last Admin: 03/05/18 07:48 Dose: 1 tab Admin: 03/04/18 20:43 Dose: 1 tab Shift Summary 03/05/18 04:29 Shift Summary by Maribel [email or web address]&James4. VSS. Up with gait belt, FWW, and 1 assist. EGD showed no active bleeding. No BM this shift. Plan is for patient to discharge home with home health today. Initialized on 03/05/18 04:29 - END OF NOTE
--- NOTE | 2018-03-10 09:05 | Operative Note ---
DATE OF OPERATION: 03/04/2018 PREOPERATIVE DIAGNOSIS: Upper GI bleeding. POSTOPERATIVE DIAGNOSIS: Multiple esophageal varices, diffuse gastritis, large healing prepyloric gastric ulcer, large ulcer of the duodenal bulb with a fibular space, no active bleeding. PROCEDURE: Esophagogastroduodenoscopy with biopsies. FINDINGS: Large bulbous varices in three columns in the esophagus without bleeding. Diffuse inflammation of the stomach with scattered erosions, most of which showed evidence of healing, moderate sized prepyloric ulcer with healing and large ulcer crater of the duodenal bulb without bleeding, with acute moderate to severe duodenitis. DESCRIPTION OF PROCEDURE: Under general anesthesia, the patient turned to the left lateral decubitus position. A time-out procedure was carried out as per protocol. A bite block was placed. Scope was introduced through the retropharynx into the esophagus. In the proximal esophagus there were scattered bulbous type esophageal varices which were non-confluent. There were three separate columns of varices, some which were decompressed and the other ones which were bulbous. The overlying mucosa was normal and was not inflamed. GE junction was unremarkable. There were no gastric varices. There was diffuse inflammation of the entire stomach with thickening of the gastric folds and scattered erosions. In the antrum, in the prepyloric area, there was a healing gastric ulcer without evidence of exposed vessel. This caused some deformity of the pylorus. Pylorus opened appropriately. In the immediate duodenal bulb, there was a large crater on the posterior wall with a fibrinous base without active bleeding. The rest of the bowel was severely inflamed as was the second portion of the duodenum. The third portion of the duodenum was normal. Scope was pulled back and antral biopsies around the ulcer were taken with some sent for CLOtest. Retroflexed view was unremarkable except for the findings noted above. Air was suctioned from the stomach and the scope was removed. The patient tolerated the procedure well. She was awakened and taken to the post-recovery area in the day surgery. LCS:[email or web address] Job ID: [id number] Doc ID: [id number] Gregoria Logan M.D.
== END 2018-03-05 16:00 | disposition home health service (06) | DRG 384 ==
LOC: ED 11:29 → MEDSUR 16:16
PROVIDERS: ADMIT Family Medicine Adult Medicine; ATTEND Family Medicine Adult Medicine
CPT/HCPCS: 43239; 731; 80047; 85014; 99231; 99238; J0131; J1817; J2250; J3010; J7030; J7050; J7120